=== PATIENT | male | born 1930 | race Caucasian/White ===

== ENCOUNTER 2018-06-12 12:52 | Inpatient (IN) | payer MEDICARE, OTHER ==
[2018-06-12 13:20] LABS: ADD MAN DIFF? NO
[2018-06-12 13:36] LABS: BASOPHIL # 0.1 10^3/ul (0.0-0.1); BASOPHILS % 0.6 % (0.0-2.0); EOSINOPHILS # 0.1 10^3/ul (0.0-0.5); EOSINOPHILS % 0.7 % (0.0-7.0); HEMOGLOBIN 13.7 g/dl (14.0-18.0); LYMPHOCYTES # 0.9 10^3/ul (0.8-2.9); LYMPHOCYTES % 11.1 % (15.0-51.0); MEAN CORPUSCULAR HEMOGLOBIN 31.7 pg (29.0-33.0); MEAN CORPUSCULAR HGB CONC 31.9 g/dl (32.0-37.0); MEAN CORPUSCULAR VOLUME 99.5 fl (82.0-101.0); MEAN PLATELET VOLUME 11.3 fl (7.4-10.4); MONOCYTES % 11.5 % (0.0-11.0); NEUTROPHIL # 6.3 10^3/ul (1.6-7.5); NEUTROPHILS % 75.6 % (39.0-77.0); PLATELET COUNT 195 10^3/UL (140-415); RED BLOOD COUNT 4.32 10^6/ul (4.70-6.10); RED CELL DISTRIBUTION WIDTH 15.9 % (11.5-14.5)
[2018-06-12 13:36] LABS: WHITE BLOOD COUNT 8.3 10^3/ul (4.8-10.8)
[2018-06-12 13:57] LABS: INR 1.49; PROTIME 18.3 Sec (11.9-14.9); PT RATIO 1.4
[2018-06-12 13:58] LABS: PARTIAL THROMBOPLASTIN TIME 29.6 Sec (25.0-35.0)
[2018-06-12 13:59] LABS: MAGNESIUM 2.3 mg/dl (1.7-2.5)
[2018-06-12 14:02] LABS: ALANINE AMINOTRANSFERASE 31 IU/L (13-69); ALBUMIN 3.1 g/dl (3.3-4.9); ALKALINE PHOSPHATASE 58 IU/L (42-121); ANION GAP 11 (8-16); ASPARTATE AMINO TRANSFERASE 23 IU/L (15-46); BILIRUBIN,INDIRECT 0.7 mg/dl (0-1.1); BILIRUBIN,TOTAL 0.7 mg/dl (0.2-1.3); BLOOD UREA NITROGEN 39 mg/dl (7-20); CALCIUM 8.6 mg/dl (8.4-10.2); CARBON DIOXIDE 27 mmol/L (21-31); CHLORIDE 110 mmol/L (97-110); CREATININE 1.25 mg/dl (0.61-1.24); GLUCOSE 87 mg/dl (70-220); POTASSIUM 4.4 mmol/L (3.5-5.1); SODIUM 144 mmol/L (135-144); TOTAL PROTEIN 5.9 g/dl (6.1-8.1)
[2018-06-12 14:12] LABS: B-TYPE NATRIURETIC PEPTIDE 5080 PG/ML (0-450); TROPONIN-I < 0.012 ng/ml (0.000-0.120)
[2018-06-12] MEDS: FUROSEMIDE 40 MG INJ IV (14:30)
[2018-06-12] MEDS: DILTIAZEM 25 MG INJ IV ×3 (14:31→15:55)
[2018-06-12] MEDS ORDERED: DOCUSATE SODIUM 100 MG CAP PO (15:00)
[2018-06-12] MEDS ORDERED: HYDROCODONE/APAP (5/325) TAB PO ×2 (15:00)
[2018-06-12] MEDS ORDERED: ACETAMINOPHEN 325 MG TAB PO (15:00)
[2018-06-12] MEDS ORDERED: morphine 2 MG INJ IV (15:00)
[2018-06-12] MEDS ORDERED: ACETAMINOPHEN 650 MG SUPP PR (15:00)
[2018-06-12] MEDS ORDERED: ONDANSETRON 4 MG INJ IV (15:00)
[2018-06-12] MEDS ORDERED: BISACODYL 10 MG SUPP PR (15:00)
[2018-06-12] MEDS ORDERED: NACL 0.9% 3 ML SYG IV (15:00)
[2018-06-12] MEDS ORDERED: WARFARIN 5 MG TAB PO (17:00)
[2018-06-12] MEDS: DIGOXIN 0.125 MG TAB PO (18:00)
[2018-06-12] MEDS: METOPROLOL 50 MG TAB PO ×2 (18:00→21:12)
[2018-06-12] MEDS: ATORVASTATIN 10 MG TAB PO (21:12)
[2018-06-12] MEDS: APIXABAN 5 MG TABLET PO (21:12)
[2018-06-13 05:52] LABS: ADD MAN DIFF? NO
[2018-06-13 05:59] LABS: BASOPHIL # 0.1 10^3/ul (0.0-0.1); BASOPHILS % 0.6 % (0.0-2.0); EOSINOPHILS # 0.1 10^3/ul (0.0-0.5); EOSINOPHILS % 1.5 % (0.0-7.0); HEMATOCRIT 44.2 % (42.0-52.0); HEMOGLOBIN 13.9 g/dl (14.0-18.0); LYMPHOCYTES % 12.1 % (15.0-51.0); MEAN CORPUSCULAR HEMOGLOBIN 30.7 pg (29.0-33.0); MEAN CORPUSCULAR HGB CONC 31.4 g/dl (32.0-37.0); MEAN CORPUSCULAR VOLUME 97.6 fl (82.0-101.0); MEAN PLATELET VOLUME 11.4 fl (7.4-10.4); MONOCYTE # 1.1 10^3/ul (0.3-0.9); MONOCYTES % 13.5 % (0.0-11.0); NEUTROPHIL # 5.7 10^3/ul (1.6-7.5); NEUTROPHILS % 71.7 % (39.0-77.0); PLATELET COUNT 181 10^3/UL (140-415); RED BLOOD COUNT 4.53 10^6/ul (4.70-6.10)
[2018-06-13] MEDS: PANTOPRAZOLE 40 MG INJ IV (06:00)
[2018-06-13 06:10] LABS: CREATINE KINASE 26 IU/L (23-200)
[2018-06-13 06:16] LABS: B-TYPE NATRIURETIC PEPTIDE 4850 PG/ML (0-450)
[2018-06-13 06:18] LABS: INR 1.61; PROTIME 19.5 Sec (11.9-14.9); PT RATIO 1.5
[2018-06-13 06:19] LABS: DIGOXIN 0.4 ng/ml (1.0-2.0)
[2018-06-13 06:22] LABS: CK INDEX 5.1; CK-MB 1.33 ng/ml (0.0-2.4); TROPONIN-I < 0.012 ng/ml (0.000-0.120)
[2018-06-13 06:27] LABS: ALANINE AMINOTRANSFERASE 35 IU/L (13-69); ALBUMIN 2.8 g/dl (3.3-4.9); ALKALINE PHOSPHATASE 49 IU/L (42-121); ANION GAP 11 (8-16); ASPARTATE AMINO TRANSFERASE 19 IU/L (15-46); BILIRUBIN,INDIRECT 0.8 mg/dl (0-1.1); BILIRUBIN,TOTAL 0.8 mg/dl (0.2-1.3); BLOOD UREA NITROGEN 39 mg/dl (7-20); CALCIUM 8.5 mg/dl (8.4-10.2); CARBON DIOXIDE 30 mmol/L (21-31); CHLORIDE 107 mmol/L (97-110); CHOL/HDL RATIO 2.2 RATIO; CHOLESTEROL 110 mg/dl (100-200); CREATININE 1.31 mg/dl (0.61-1.24); GLUCOSE 85 mg/dl (70-220); HDL CHOLESTEROL 49 mg/dl (31-75); LDL CHOLESTEROL,CALCULATED 49 mg/dl; MAGNESIUM 2.1 mg/dl (1.7-2.5); PHOSPHORUS 4.8 mg/dl (2.5-4.9); POTASSIUM 4.4 mmol/L (3.5-5.1); SODIUM 144 mmol/L (135-144); TOTAL PROTEIN 5.6 g/dl (6.1-8.1); TRIGLYCERIDES 60 mg/dl (0-149)
[2018-06-13 06:29] LABS: FREE THYROXINE INDEX (Calc) 2.53 ug/ml (0.65-3.89); T4 (THYROXINE) 5.5 ug/dl (5.5-11.0)
[2018-06-13 06:29] LABS: FREE T4 (FREE THYROXINE) 1.38 ng/dl (0.85-1.93)
[2018-06-13 07:13] LABS: HEMOGLOBIN A1C 5.8 % (0-5.9)
[2018-06-13] MEDS: METOPROLOL 50 MG TAB PO ×2 (08:57→12:11)
[2018-06-13] MEDS: APIXABAN 5 MG TABLET PO ×2 (08:57→21:22)
[2018-06-13] MEDS: LISINOPRIL 5 MG TAB PO (08:57)
[2018-06-13] MEDS ORDERED: LISINOPRIL 20 MG TAB PO (09:00)
[2018-06-13] MEDS ORDERED: AMLODIPINE 10 MG TAB PO (09:00)
[2018-06-13] MEDS ORDERED: AMIODARONE 200 MG TAB PO (09:00)
[2018-06-13] MEDS: DIGOXIN 0.125 MG TAB PO (12:10)
[2018-06-13 13:20] LABS: ADD UMIC YES; UR ASCORBIC ACID NEGATIVE (NEGATIVE); UR BACTERIA FEW /HPF (NONE SEEN); UR BILIRUBIN (Dip) NEGATIVE (NEGATIVE); UR BLOOD (Dip) NEGATIVE (NEGATIVE); UR CLARITY CLEAR (CLEAR); UR COLOR YELLOW (YELLOW); UR GLUCOSE (Dip) NEGATIVE (NEGATIVE); UR KETONES (Dip) NEGATIVE (NEGATIVE); UR LEUKOCYTE ESTERASE (Dip) NEGATIVE Leu/ul (NEGATIVE); UR NITRITE (Dip) NEGATIVE (NEGATIVE); UR RBC 2 /HPF (0-5); UR SPECIFIC GRAVITY (Dip) 1.014 (1.003-1.030); UR TOTAL PROTEIN (Dip) 1+ mg/dl (NEGATIVE); UR UROBILINOGEN (Dip) NEGATIVE (NEGATIVE); UR WBC 2 /HPF (0-5)
[2018-06-13 13:34] LABS: CREATININE,URINE RANDOM 96.81 mg/dl (20-370)
[2018-06-13 13:34] LABS: SODIUM,URINE RANDOM 16 mmol/L (30-90)
[2018-06-13] MEDS ORDERED: WARFARIN 2.5 MG TAB PO (17:00)
[2018-06-13] MEDS ORDERED: morphine LIQ (10 MG/5 ML) CUP PO (17:30)
[2018-06-13] MEDS: DIGOXIN 500 MCG INJ IV (18:13)
[2018-06-13] MEDS: METOPROLOL (XL) 100 MG TAB PO (21:24)
[2018-06-13] MEDS: ATORVASTATIN 10 MG TAB PO (21:24)
[2018-06-14] MEDS: PANTOPRAZOLE 40 MG INJ IV (05:18)
[2018-06-14] MEDS: DILTIAZEM 25 MG INJ IV ×2 (05:18→17:33)
[2018-06-14 05:54] LABS: ADD MAN DIFF? NO
[2018-06-14 06:00] LABS: WHITE BLOOD COUNT 7.9 10^3/ul (4.8-10.8)
[2018-06-14 06:00] LABS: BASOPHIL # 0.1 10^3/ul (0.0-0.1); BASOPHILS % 0.6 % (0.0-2.0); EOSINOPHILS # 0.2 10^3/ul (0.0-0.5); EOSINOPHILS % 1.9 % (0.0-7.0); HEMATOCRIT 46.2 % (42.0-52.0); HEMOGLOBIN 14.6 g/dl (14.0-18.0); LYMPHOCYTES % 13.1 % (15.0-51.0); MEAN CORPUSCULAR HEMOGLOBIN 31.5 pg (29.0-33.0); MEAN CORPUSCULAR HGB CONC 31.6 g/dl (32.0-37.0); MEAN CORPUSCULAR VOLUME 99.6 fl (82.0-101.0); MEAN PLATELET VOLUME 11.4 fl (7.4-10.4); MONOCYTE # 0.9 10^3/ul (0.3-0.9); MONOCYTES % 11.5 % (0.0-11.0); NEUTROPHIL # 5.7 10^3/ul (1.6-7.5); NEUTROPHILS % 72.4 % (39.0-77.0); PLATELET COUNT 184 10^3/UL (140-415); RED BLOOD COUNT 4.64 10^6/ul (4.70-6.10); RED CELL DISTRIBUTION WIDTH 15.9 % (11.5-14.5)
[2018-06-14 07:00] LABS: ANION GAP 11 (8-16); BLOOD UREA NITROGEN 42 mg/dl (7-20); CALCIUM 8.4 mg/dl (8.4-10.2); CARBON DIOXIDE 31 mmol/L (21-31); CHLORIDE 105 mmol/L (97-110); CREATININE 1.31 mg/dl (0.61-1.24); GLUCOSE 84 mg/dl (70-220); POTASSIUM 4.4 mmol/L (3.5-5.1); SODIUM 143 mmol/L (135-144)
[2018-06-14] MEDS: APIXABAN 5 MG TABLET PO ×2 (08:48→21:09)
[2018-06-14] MEDS: METOPROLOL (XL) 100 MG TAB PO ×2 (08:49→21:09)
[2018-06-14] MEDS: LISINOPRIL 5 MG TAB PO (08:50)
[2018-06-14] MEDS: FUROSEMIDE 20 MG INJ IV (10:58)
[2018-06-14] MEDS: DIGOXIN 500 MCG INJ IV (11:03)
[2018-06-14] MEDS: DIGOXIN 0.125 MG TAB PO (12:17)
[2018-06-14] MEDS: ATORVASTATIN 10 MG TAB PO (21:09)
[2018-06-15 06:16] LABS: ADD MAN DIFF? NO
[2018-06-15 06:23] LABS: BASOPHIL # 0.1 10^3/ul (0.0-0.1); BASOPHILS % 0.7 % (0.0-2.0); EOSINOPHILS # 0.2 10^3/ul (0.0-0.5); EOSINOPHILS % 2.1 % (0.0-7.0); HEMATOCRIT 43.9 % (42.0-52.0); HEMOGLOBIN 13.7 g/dl (14.0-18.0); LYMPHOCYTES # 0.9 10^3/ul (0.8-2.9); LYMPHOCYTES % 11.7 % (15.0-51.0); MEAN CORPUSCULAR HEMOGLOBIN 30.7 pg (29.0-33.0); MEAN CORPUSCULAR HGB CONC 31.2 g/dl (32.0-37.0); MEAN CORPUSCULAR VOLUME 98.4 fl (82.0-101.0); MEAN PLATELET VOLUME 11.5 fl (7.4-10.4); MONOCYTES % 12.7 % (0.0-11.0); NEUTROPHIL # 5.8 10^3/ul (1.6-7.5); NEUTROPHILS % 72.3 % (39.0-77.0); PLATELET COUNT 178 10^3/UL (140-415); RED BLOOD COUNT 4.46 10^6/ul (4.70-6.10); RED CELL DISTRIBUTION WIDTH 15.9 % (11.5-14.5)
[2018-06-15] MEDS: PANTOPRAZOLE 40 MG INJ IV (06:35)
[2018-06-15 06:49] LABS: ALANINE AMINOTRANSFERASE 27 IU/L (13-69); ALBUMIN 2.9 g/dl (3.3-4.9); ALBUMIN/GLOBULIN RATIO 1.11; ALKALINE PHOSPHATASE 50 IU/L (42-121); ANION GAP 9 (8-16); ASPARTATE AMINO TRANSFERASE 17 IU/L (15-46); B-TYPE NATRIURETIC PEPTIDE 8370 PG/ML (0-450); BILIRUBIN,INDIRECT 0.9 mg/dl (0-1.1); BILIRUBIN,TOTAL 0.9 mg/dl (0.2-1.3); BLOOD UREA NITROGEN 43 mg/dl (7-20); CALCIUM 8.3 mg/dl (8.4-10.2); CARBON DIOXIDE 31 mmol/L (21-31); CHLORIDE 107 mmol/L (97-110); CREATININE 1.29 mg/dl (0.61-1.24); GLUCOSE 80 mg/dl (70-220); POTASSIUM 4.3 mmol/L (3.5-5.1); SODIUM 143 mmol/L (135-144); TOTAL PROTEIN 5.5 g/dl (6.1-8.1)
[2018-06-15] MEDS ORDERED: BUMETANIDE 1 MG TAB PO (09:00)
[2018-06-15] MEDS: APIXABAN 5 MG TABLET PO ×2 (09:34→20:55)
[2018-06-15] MEDS: METOPROLOL (XL) 100 MG TAB PO ×2 (09:34→20:56)
[2018-06-15] MEDS: FUROSEMIDE 20 MG INJ IV ×2 (09:54→18:52)
[2018-06-15] MEDS: DILTIAZEM 30 MG TAB PO ×3 (13:00→18:52)
[2018-06-15] MEDS: DIGOXIN 0.125 MG TAB PO (13:04)
[2018-06-15 15:46] LABS: CREATININE, RANDOM URINE 98 mg/dL (20-320); MICROALBUMIN 13.3 mg/dL; MICROALBUMIN/CREATININE RATIO 136 (<30)
[2018-06-15] MEDS: ATORVASTATIN 10 MG TAB PO (20:55)
[2018-06-16] MEDS: DILTIAZEM 30 MG TAB PO ×5 (00:45→23:19)
[2018-06-16] MEDS: PANTOPRAZOLE 40 MG INJ IV (05:01)
[2018-06-16] MEDS: FUROSEMIDE 20 MG INJ IV ×2 (05:03→17:53)
[2018-06-16 05:44] LABS: ADD MAN DIFF? NO
[2018-06-16 05:49] LABS: BASOPHIL # 0.1 10^3/ul (0.0-0.1); BASOPHILS % 0.7 % (0.0-2.0); EOSINOPHILS # 0.1 10^3/ul (0.0-0.5); EOSINOPHILS % 1.9 % (0.0-7.0); HEMATOCRIT 45.1 % (42.0-52.0); HEMOGLOBIN 14.4 g/dl (14.0-18.0); LYMPHOCYTES # 0.9 10^3/ul (0.8-2.9); LYMPHOCYTES % 11.4 % (15.0-51.0); MEAN CORPUSCULAR HEMOGLOBIN 31.4 pg (29.0-33.0); MEAN CORPUSCULAR HGB CONC 31.9 g/dl (32.0-37.0); MEAN CORPUSCULAR VOLUME 98.5 fl (82.0-101.0); MEAN PLATELET VOLUME 11.4 fl (7.4-10.4); MONOCYTE # 0.9 10^3/ul (0.3-0.9); MONOCYTES % 12.4 % (0.0-11.0); NEUTROPHIL # 5.5 10^3/ul (1.6-7.5); NEUTROPHILS % 73.2 % (39.0-77.0); PLATELET COUNT 167 10^3/UL (140-415); RED BLOOD COUNT 4.58 10^6/ul (4.70-6.10); RED CELL DISTRIBUTION WIDTH 15.8 % (11.5-14.5)
[2018-06-16 05:49] LABS: WHITE BLOOD COUNT 7.5 10^3/ul (4.8-10.8)
[2018-06-16 06:31] LABS: ANION GAP 12 (8-16); BLOOD UREA NITROGEN 38 mg/dl (7-20); CARBON DIOXIDE 29 mmol/L (21-31); CHLORIDE 106 mmol/L (97-110); CREATININE 1.09 mg/dl (0.61-1.24); GLUCOSE 78 mg/dl (70-220); POTASSIUM 3.7 mmol/L (3.5-5.1); SODIUM 143 mmol/L (135-144)
[2018-06-16 06:36] LABS: MAGNESIUM 1.7 mg/dl (1.7-2.5)
[2018-06-16 06:43] LABS: B-TYPE NATRIURETIC PEPTIDE 8680 PG/ML (0-450)
[2018-06-16] MEDS: METOPROLOL (XL) 100 MG TAB PO ×2 (09:50→20:54)
[2018-06-16] MEDS: APIXABAN 5 MG TABLET PO ×2 (09:51→20:54)
[2018-06-16] MEDS: DIGOXIN 0.125 MG TAB PO (13:00)
[2018-06-16] MEDS: POTASSIUM CHLORIDE (SR) 20 MEQ TAB PO (18:02)
[2018-06-16] MEDS: ATORVASTATIN 10 MG TAB PO (20:54)
[2018-06-17] MEDS: DILTIAZEM 30 MG TAB PO (05:18)
[2018-06-17] MEDS: PANTOPRAZOLE 40 MG INJ IV (05:18)
[2018-06-17] MEDS: FUROSEMIDE 20 MG INJ IV ×2 (05:19→17:36)
[2018-06-17 06:11] LABS: ADD MAN DIFF? NO
[2018-06-17 06:21] LABS: HEMOGLOBIN 14.3 g/dl (14.0-18.0); RED BLOOD COUNT 4.59 10^6/ul (4.70-6.10)
[2018-06-17 06:21] LABS: WHITE BLOOD COUNT 7.3 10^3/ul (4.8-10.8)
[2018-06-17 06:22] LABS: BASOPHILS % 0.5 % (0.0-2.0); EOSINOPHILS # 0.2 10^3/ul (0.0-0.5); HEMATOCRIT 45.2 % (42.0-52.0); LYMPHOCYTES # 0.9 10^3/ul (0.8-2.9); LYMPHOCYTES % 11.9 % (15.0-51.0); MEAN CORPUSCULAR HEMOGLOBIN 31.2 pg (29.0-33.0); MEAN CORPUSCULAR HGB CONC 31.6 g/dl (32.0-37.0); MEAN CORPUSCULAR VOLUME 98.5 fl (82.0-101.0); MEAN PLATELET VOLUME 11.2 fl (7.4-10.4); MONOCYTE # 0.9 10^3/ul (0.3-0.9); MONOCYTES % 11.7 % (0.0-11.0); NEUTROPHIL # 5.3 10^3/ul (1.6-7.5); NEUTROPHILS % 72.9 % (39.0-77.0); PLATELET COUNT 165 10^3/UL (140-415); RED CELL DISTRIBUTION WIDTH 15.8 % (11.5-14.5)
[2018-06-17 06:33] LABS: ANION GAP 8 (8-16); BLOOD UREA NITROGEN 35 mg/dl (7-20); CALCIUM 7.9 mg/dl (8.4-10.2); CARBON DIOXIDE 33 mmol/L (21-31); CHLORIDE 107 mmol/L (97-110); CREATININE 1.22 mg/dl (0.61-1.24); GLUCOSE 82 mg/dl (70-220); POTASSIUM 3.8 mmol/L (3.5-5.1); SODIUM 144 mmol/L (135-144)
[2018-06-17 06:40] LABS: DIGOXIN 0.8 ng/ml (1.0-2.0)
[2018-06-17 08:37] LABS: MAGNESIUM 1.7 mg/dl (1.7-2.5)
[2018-06-17] MEDS: METOPROLOL (XL) 100 MG TAB PO ×2 (09:39→21:02)
[2018-06-17] MEDS: APIXABAN 5 MG TABLET PO ×2 (09:39→21:00)
[2018-06-17] MEDS: MAGNESIUM HYDROXIDE 30ML CUP PO (09:40)
[2018-06-17] MEDS: DIGOXIN 0.125 MG TAB PO (12:38)
[2018-06-17] MEDS: DILTIAZEM (CD) 180 MG CAP PO (21:00)
[2018-06-17] MEDS: ATORVASTATIN 10 MG TAB PO (21:00)
[2018-06-18 06:03] LABS: ADD MAN DIFF? NO
[2018-06-18 06:14] LABS: WHITE BLOOD COUNT 7.4 10^3/ul (4.8-10.8)
[2018-06-18 06:14] LABS: BASOPHILS % 0.4 % (0.0-2.0); EOSINOPHILS # 0.2 10^3/ul (0.0-0.5); EOSINOPHILS % 2.2 % (0.0-7.0); HEMATOCRIT 43.5 % (42.0-52.0); HEMOGLOBIN 13.8 g/dl (14.0-18.0); LYMPHOCYTES # 0.9 10^3/ul (0.8-2.9); LYMPHOCYTES % 11.5 % (15.0-51.0); MEAN CORPUSCULAR HEMOGLOBIN 31.2 pg (29.0-33.0); MEAN CORPUSCULAR HGB CONC 31.7 g/dl (32.0-37.0); MEAN CORPUSCULAR VOLUME 98.4 fl (82.0-101.0); MEAN PLATELET VOLUME 11.3 fl (7.4-10.4); MONOCYTES % 12.8 % (0.0-11.0); NEUTROPHIL # 5.4 10^3/ul (1.6-7.5); NEUTROPHILS % 72.7 % (39.0-77.0); PLATELET COUNT 158 10^3/UL (140-415); RED BLOOD COUNT 4.42 10^6/ul (4.70-6.10); RED CELL DISTRIBUTION WIDTH 15.8 % (11.5-14.5)
[2018-06-18] MEDS: PANTOPRAZOLE (EC) 40 MG TAB PO (06:18)
[2018-06-18] MEDS: FUROSEMIDE 20 MG INJ IV ×2 (06:19→17:37)
[2018-06-18 06:35] LABS: ANION GAP 9 (8-16); BLOOD UREA NITROGEN 34 mg/dl (7-20); CALCIUM 7.8 mg/dl (8.4-10.2); CARBON DIOXIDE 34 mmol/L (21-31); CHLORIDE 105 mmol/L (97-110); CREATININE 1.15 mg/dl (0.61-1.24); GLUCOSE 80 mg/dl (70-220); POTASSIUM 3.5 mmol/L (3.5-5.1); SODIUM 144 mmol/L (135-144)
[2018-06-18] MEDS: DILTIAZEM (CD) 180 MG CAP PO ×2 (08:27→20:14)
[2018-06-18] MEDS: APIXABAN 5 MG TABLET PO ×2 (08:28→20:14)
[2018-06-18] MEDS: METOPROLOL (XL) 100 MG TAB PO ×2 (08:28→20:14)
[2018-06-18] MEDS: POTASSIUM CHLORIDE (SR) 20 MEQ TAB PO (11:51)
[2018-06-18] MEDS: DIGOXIN 0.125 MG TAB PO (12:59)
[2018-06-18] MEDS: MAGNESIUM SULFATE 3 GM in DEXTROSE 5% 100 ML IVPB (12:59)
[2018-06-18] MEDS: ATORVASTATIN 10 MG TAB PO (20:14)
[2018-06-19] MEDS: PANTOPRAZOLE (EC) 40 MG TAB PO (06:06)
[2018-06-19] MEDS: FUROSEMIDE 20 MG INJ IV ×2 (06:06→17:36)
[2018-06-19] MEDS: METOPROLOL (XL) 100 MG TAB PO ×2 (08:14→20:25)
[2018-06-19] MEDS: APIXABAN 5 MG TABLET PO ×2 (08:14→20:25)
[2018-06-19] MEDS: DILTIAZEM (CD) 180 MG CAP PO ×2 (08:14→20:25)
[2018-06-19] MEDS: DIGOXIN 0.125 MG TAB PO (13:51)
[2018-06-19] MEDS: LISINOPRIL 10 MG TAB PO (17:36)
[2018-06-19] MEDS: MAGNESIUM HYDROXIDE 30ML CUP PO (17:41)
[2018-06-19] MEDS: ATORVASTATIN 10 MG TAB PO (20:25)
[2018-06-20] MEDS: FUROSEMIDE 20 MG INJ IV (05:36)
[2018-06-20] MEDS: PANTOPRAZOLE (EC) 40 MG TAB PO (05:36)
[2018-06-20 05:46] LABS: ADD MAN DIFF? NO
[2018-06-20 05:50] LABS: BASOPHILS % 0.5 % (0.0-2.0); EOSINOPHILS # 0.2 10^3/ul (0.0-0.5); EOSINOPHILS % 2.4 % (0.0-7.0); HEMATOCRIT 42.8 % (42.0-52.0); HEMOGLOBIN 13.7 g/dl (14.0-18.0); LYMPHOCYTES # 0.9 10^3/ul (0.8-2.9); LYMPHOCYTES % 11.1 % (15.0-51.0); MEAN CORPUSCULAR VOLUME 96.8 fl (82.0-101.0); NEUTROPHIL # 5.8 10^3/ul (1.6-7.5); NEUTROPHILS % 72.6 % (39.0-77.0); PLATELET COUNT 154 10^3/UL (140-415); RED BLOOD COUNT 4.42 10^6/ul (4.70-6.10); RED CELL DISTRIBUTION WIDTH 15.7 % (11.5-14.5)
[2018-06-20 06:10] LABS: MAGNESIUM 2.1 mg/dl (1.7-2.5)
[2018-06-20 06:10] LABS: PHOSPHORUS 2.8 mg/dl (2.5-4.9)
[2018-06-20 06:14] LABS: ANION GAP 6 (8-16); BLOOD UREA NITROGEN 29 mg/dl (7-20); CALCIUM 7.5 mg/dl (8.4-10.2); CARBON DIOXIDE 37 mmol/L (21-31); CHLORIDE 103 mmol/L (97-110); CREATININE 1.05 mg/dl (0.61-1.24); GLUCOSE 89 mg/dl (70-220); POTASSIUM 3.5 mmol/L (3.5-5.1); SODIUM 142 mmol/L (135-144)
[2018-06-20] MEDS: LISINOPRIL 10 MG TAB PO (09:26)
[2018-06-20] MEDS: APIXABAN 5 MG TABLET PO (09:27)
[2018-06-20] MEDS: METOPROLOL (XL) 100 MG TAB PO (09:27)
[2018-06-20] MEDS: DILTIAZEM (CD) 180 MG CAP PO (09:27)
[2018-06-20] MEDS: MAGNESIUM HYDROXIDE 30ML CUP PO (09:31)
[2018-06-20] MEDS: DIGOXIN 0.125 MG TAB PO (13:03)
[2018-06-21] MEDS ORDERED: FUROSEMIDE 40 MG TAB PO (09:00)
== END 2018-06-20 15:16 | DRG 308 ==
LOC: E/R 12:52 → 6WM 14:26
DX: I48.91 Unspecified atrial fibrillation (principal); I50.43 Acute on chronic combined systolic (congestive) and diastolic (congestive) heart failure; I13.0 Hypertensive heart and chronic kidney disease with heart failure and stage 1 through stage 4 chronic kidney disease, or unspecified chronic kidney disease; N17.9 Acute kidney failure, unspecified; I25.10 Atherosclerotic heart disease of native coronary artery without angina pectoris; I49.5 Sick sinus syndrome; E78.5 Hyperlipidemia, unspecified; N40.0 Benign prostatic hyperplasia without lower urinary tract symptoms; E83.9 Disorder of mineral metabolism, unspecified; R41.3 Other amnesia; D64.9 Anemia, unspecified; R09.02 Hypoxemia; I42.9 Cardiomyopathy, unspecified; I27.20 Pulmonary hypertension, unspecified; N18.3 Chronic kidney disease, stage 3 (moderate); Z96.642 Presence of left artificial hip joint; Z85.828 Personal history of other malignant neoplasm of skin; Z95.0 Presence of cardiac pacemaker; Z86.79 Personal history of other diseases of the circulatory system
CPT/HCPCS: 36415; 71045; 76775; 80048; 80053; 80061; 80162; 81001; 81003; 82043; 82550; 82553; 83036; 83735; 83880; 84100; 84155; 84300; 84436; 84439; 84443; 84479; 84484; 85025; 85610; 85730; 87081; 93005; 93306; 97116; 97161; 97530; 99291-25

== ENCOUNTER 2018-07-02 16:59 | Inpatient (IN) | payer MEDICARE, OTHER ==
[2018-07-02] MEDS: IPRATROPIUM (NEB) 0.5 MG/2.5 ML AMP INH (17:42)
[2018-07-02] MEDS: ALBUTEROL 0.5% (NEB) 2.5 MG/0.5 ML AMP INH (17:42)
[2018-07-02 18:00] LABS: ADD MAN DIFF? NO
[2018-07-02 18:03] LABS: ABNORMAL IP MESSAGE 1; BASOPHILS % 0.5 % (0.0-2.0); EOSINOPHILS # 0.1 10^3/ul (0.0-0.5); EOSINOPHILS % 1.5 % (0.0-7.0); HEMATOCRIT 46.5 % (42.0-52.0); HEMOGLOBIN 14.8 g/dl (14.0-18.0); LYMPHOCYTES # 0.5 10^3/ul (0.8-2.9); LYMPHOCYTES % 6.7 % (15.0-51.0); MEAN CORPUSCULAR HGB CONC 31.8 g/dl (32.0-37.0); MEAN CORPUSCULAR VOLUME 97.3 fl (82.0-101.0); MEAN PLATELET VOLUME 10.8 fl (7.4-10.4); MONOCYTE # 1.1 10^3/ul (0.3-0.9); NEUTROPHIL # 6.2 10^3/ul (1.6-7.5); NEUTROPHILS % 76.7 % (39.0-77.0); PLATELET COUNT 199 10^3/UL (140-415); POSITIVE DIFF @See below; RED BLOOD COUNT 4.78 10^6/ul (4.70-6.10); RED CELL DISTRIBUTION WIDTH 16.5 % (11.5-14.5)
[2018-07-02 18:21] LABS: INR 1.39; PROTIME 17.3 Sec (11.9-14.9); PT RATIO 1.4
[2018-07-02 18:22] LABS: PARTIAL THROMBOPLASTIN TIME 30.9 Sec (23.0-35.0)
[2018-07-02 18:28] LABS: ALANINE AMINOTRANSFERASE 26 IU/L (13-69); ALBUMIN 3.2 g/dl (3.3-4.9); ALKALINE PHOSPHATASE 64 IU/L (42-121); AMYLASE 45 U/L (11-123); ANION GAP 9 (8-16); ASPARTATE AMINO TRANSFERASE 23 IU/L (15-46); BILIRUBIN,INDIRECT 0.7 mg/dl (0-1.1); BILIRUBIN,TOTAL 0.7 mg/dl (0.2-1.3); BLOOD UREA NITROGEN 26 mg/dl (7-20); CARBON DIOXIDE 29 mmol/L (21-31); CHLORIDE 108 mmol/L (97-110); CREATININE 1.06 mg/dl (0.61-1.24); GLUCOSE 108 mg/dl (70-220); SODIUM 142 mmol/L (135-144); TOTAL PROTEIN 6.1 g/dl (6.1-8.1)
[2018-07-02 18:38] LABS: CALCIUM 8.3 mg/dl (8.4-10.2); LIPASE 161 U/L (23-300)
[2018-07-02 18:47] LABS: B-TYPE NATRIURETIC PEPTIDE 7400 PG/ML (0-450)
[2018-07-02 18:50] LABS: TROPONIN-I 0.044 ng/ml (0.000-0.120)
[2018-07-02] MEDS ORDERED: ALBUTEROL/IPRATROPIUM (NEB) 3 ML AMP HHN (19:00)
[2018-07-02] MEDS ORDERED: LABETALOL HCL 20MG INJ IV (19:00)
[2018-07-02] MEDS ORDERED: ONDANSETRON 4 MG INJ IV (19:30)
[2018-07-02] MEDS ORDERED: ACETAMINOPHEN 325 MG TAB PO (19:30)
[2018-07-02] MEDS: FUROSEMIDE 40 MG INJ IV (19:31)
[2018-07-02 20:12] LABS: ADD UMIC YES; UR ASCORBIC ACID NEGATIVE (NEGATIVE); UR BILIRUBIN (Dip) NEGATIVE (NEGATIVE); UR BLOOD (Dip) NEGATIVE (NEGATIVE); UR CLARITY CLEAR (CLEAR); UR COLOR YELLOW (YELLOW); UR GLUCOSE (Dip) NEGATIVE (NEGATIVE); UR KETONES (Dip) NEGATIVE (NEGATIVE); UR LEUKOCYTE ESTERASE (Dip) NEGATIVE Leu/ul (NEGATIVE); UR MUCUS FEW /HPF (NONE SEEN); UR NITRITE (Dip) NEGATIVE (NEGATIVE); UR RBC 4 /HPF (0-5); UR SPECIFIC GRAVITY (Dip) 1.018 (1.003-1.030); UR TOTAL PROTEIN (Dip) 2+ mg/dl (NEGATIVE); UR UROBILINOGEN (Dip) 2+ mg/dL (NEGATIVE); UR WBC 2 /HPF (0-5)
[2018-07-02] MEDS ORDERED: hydrALAzine 20 MG INJ IV (20:30)
[2018-07-02] MEDS: ALBUTEROL/IPRATROPIUM (NEB) 3 ML AMP HHN (20:54)
[2018-07-02] MEDS ORDERED: GLUCOSE GEL 15 GRAM TUBE PO ×2 (23:45)
[2018-07-02] MEDS ORDERED: GLUCOSE GEL 15 GRAM TUBE BUCCAL (23:45)
[2018-07-02] MEDS ORDERED: DEXTROSE 50% 50 ML SYRINGE IV ×2 (23:45)
[2018-07-02] MEDS ORDERED: GLUCAGON 1 MG INJ IM (23:45)
[2018-07-03] MEDS: ACCU-CHEK XX (02:00)
[2018-07-03] MEDS: DILTIAZEM 25 MG INJ IV (04:30)
[2018-07-03] MEDS ORDERED: METOPROLOL (XL) 100 MG TAB PO (06:00)
[2018-07-03] MEDS: METOPROLOL (XL) 100 MG TAB PO (06:35)
[2018-07-03] MEDS ORDERED: INSULIN ASPART [NOVOLOG] 3 ML PEN SC (07:55)
[2018-07-03] MEDS: APIXABAN 5 MG TABLET PO ×2 (08:20→20:57)
[2018-07-03] MEDS: DILTIAZEM (SR) 90 MG CAP PO ×2 (08:20→20:57)
[2018-07-03 08:25] LABS: ADD MAN DIFF? NO
[2018-07-03 08:35] LABS: WHITE BLOOD COUNT 8.3 10^3/ul (4.8-10.8)
[2018-07-03 08:35] LABS: ABNORMAL IP MESSAGE 1; BASOPHILS % 0.4 % (0.0-2.0); EOSINOPHILS # 0.1 10^3/ul (0.0-0.5); EOSINOPHILS % 0.8 % (0.0-7.0); HEMATOCRIT 47.3 % (42.0-52.0); LYMPHOCYTES # 0.6 10^3/ul (0.8-2.9); LYMPHOCYTES % 6.7 % (15.0-51.0); MEAN CORPUSCULAR HGB CONC 31.7 g/dl (32.0-37.0); MEAN CORPUSCULAR VOLUME 97.7 fl (82.0-101.0); MEAN PLATELET VOLUME 10.4 fl (7.4-10.4); MONOCYTE # 0.9 10^3/ul (0.3-0.9); MONOCYTES % 10.4 % (0.0-11.0); NEUTROPHIL # 6.8 10^3/ul (1.6-7.5); PLATELET COUNT 198 10^3/UL (140-415); POSITIVE DIFF @See below; RED BLOOD COUNT 4.84 10^6/ul (4.70-6.10); RED CELL DISTRIBUTION WIDTH 16.5 % (11.5-14.5)
[2018-07-03 08:54] LABS: ALANINE AMINOTRANSFERASE 35 IU/L (13-69); ALBUMIN 2.7 g/dl (3.3-4.9); ALBUMIN/GLOBULIN RATIO 0.87; ALKALINE PHOSPHATASE 61 IU/L (42-121); ANION GAP 11 (8-16); ASPARTATE AMINO TRANSFERASE 23 IU/L (15-46); BLOOD UREA NITROGEN 23 mg/dl (7-20); CALCIUM 8.2 mg/dl (8.4-10.2); CARBON DIOXIDE 30 mmol/L (21-31); CHLORIDE 106 mmol/L (97-110); CREATININE 1.06 mg/dl (0.61-1.24); GLUCOSE 114 mg/dl (70-220); POTASSIUM 3.9 mmol/L (3.5-5.1); SODIUM 143 mmol/L (135-144); TOTAL PROTEIN 5.8 g/dl (6.1-8.1)
[2018-07-03] MEDS: ALBUTEROL/IPRATROPIUM (NEB) 3 ML AMP HHN ×3 (09:18→20:00)
[2018-07-03 10:27] LABS: CREATINE KINASE 22 IU/L (23-200)
[2018-07-03 10:40] LABS: CK-MB 1.77 ng/ml (0.0-2.4)
[2018-07-03] MEDS: DIGOXIN 0.125 MG TAB PO (12:54)
[2018-07-03 14:35] LABS: CREATINE KINASE 29 IU/L (23-200)
[2018-07-03 14:46] LABS: CK INDEX 6.9; CK-MB 2.01 ng/ml (0.0-2.4)
[2018-07-03] MEDS: LORAZEPAM 2 MG INJ IV (22:55)
[2018-07-04] MEDS ORDERED: DILTIAZEM-D5W 125MG/125ML DRIP 125 ML IV ×2 (04:30→05:00)
[2018-07-04] MEDS: METHYLPREDNISOLONE 125 MG INJ IV ×2 (04:36→21:26)
[2018-07-04 05:25] LABS: ADD MAN DIFF? NO
[2018-07-04 05:33] LABS: WHITE BLOOD COUNT 8.4 10^3/ul (4.8-10.8)
[2018-07-04 05:33] LABS: BASOPHILS % 0.4 % (0.0-2.0); EOSINOPHILS # 0.2 10^3/ul (0.0-0.5); EOSINOPHILS % 1.8 % (0.0-7.0); HEMOGLOBIN 14.6 g/dl (14.0-18.0); LYMPHOCYTES # 0.9 10^3/ul (0.8-2.9); LYMPHOCYTES % 10.3 % (15.0-51.0); MEAN CORPUSCULAR HEMOGLOBIN 31.3 pg (29.0-33.0); MEAN CORPUSCULAR HGB CONC 32.4 g/dl (32.0-37.0); MEAN CORPUSCULAR VOLUME 96.4 fl (82.0-101.0); MEAN PLATELET VOLUME 10.6 fl (7.4-10.4); MONOCYTE # 1.1 10^3/ul (0.3-0.9); MONOCYTES % 13.5 % (0.0-11.0); NEUTROPHIL # 6.1 10^3/ul (1.6-7.5); NEUTROPHILS % 73.4 % (39.0-77.0); PLATELET COUNT 195 10^3/UL (140-415); RED BLOOD COUNT 4.67 10^6/ul (4.70-6.10); RED CELL DISTRIBUTION WIDTH 16.2 % (11.5-14.5)
[2018-07-04] MEDS: DILTIAZEM-D5W 125MG/125ML DRIP 125 ML IV ×2 (05:45→18:18)
[2018-07-04 06:15] LABS: CHOL/HDL RATIO 2.8 RATIO; HDL CHOLESTEROL 49 mg/dl (31-75); LDL CHOLESTEROL,CALCULATED 75 mg/dl; TRIGLYCERIDES 84 mg/dl (0-149)
[2018-07-04 06:15] LABS: CHOLESTEROL 141 mg/dl (100-200)
[2018-07-04 06:16] LABS: B-TYPE NATRIURETIC PEPTIDE 7720 PG/ML (0-450)
[2018-07-04 06:24] LABS: FREE T4 (FREE THYROXINE) 1.76 ng/dl (0.85-1.93)
[2018-07-04 06:35] LABS: CREATINE KINASE 27 IU/L (23-200)
[2018-07-04 06:40] LABS: DIGOXIN 0.9 ng/ml (1.0-2.0)
[2018-07-04 06:47] LABS: CK INDEX 7.9; CK-MB 2.12 ng/ml (0.0-2.4)
[2018-07-04 06:49] LABS: TROPONIN-I 0.056 ng/ml (0.000-0.120)
[2018-07-04 07:33] LABS: ANION GAP 12 (8-16); BLOOD UREA NITROGEN 32 mg/dl (7-20); CARBON DIOXIDE 27 mmol/L (21-31); CHLORIDE 116 mmol/L (97-110); CREATININE 1.25 mg/dl (0.61-1.24); GLUCOSE 109 mg/dl (70-220); MAGNESIUM 1.8 mg/dl (1.7-2.5); POTASSIUM 3.6 mmol/L (3.5-5.1); SODIUM 151 mmol/L (135-144)
[2018-07-04] MEDS: ALBUTEROL/IPRATROPIUM (NEB) 3 ML AMP HHN ×3 (07:43→19:37)
[2018-07-04] MEDS: METOPROLOL (XL) 50 MG TAB PO (08:22)
[2018-07-04] MEDS: DILTIAZEM (SR) 90 MG CAP PO (08:23)
[2018-07-04] MEDS: APIXABAN 5 MG TABLET PO ×2 (08:23→21:26)
[2018-07-04] MEDS: FUROSEMIDE 20 MG INJ IV ×2 (08:24→17:01)
[2018-07-04] MEDS ORDERED: FUROSEMIDE 20 MG INJ IV (09:00)
[2018-07-04] MEDS: DIGOXIN 0.125 MG TAB PO (12:31)
[2018-07-04] MEDS ORDERED: DILTIAZEM 90 MG TAB PO (18:30)
[2018-07-04] MEDS: DILTIAZEM 90 MG TAB PO (21:28)
[2018-07-05] MEDS: DILTIAZEM 90 MG TAB PO ×5 (03:11→23:47)
[2018-07-05] MEDS: DEXTROSE 5% 1,000 ML IV ×2 (05:20→11:10)
[2018-07-05] MEDS: METHYLPREDNISOLONE 125 MG INJ IV ×3 (05:45→21:48)
[2018-07-05] MEDS: FUROSEMIDE 20 MG INJ IV (05:45)
[2018-07-05 05:46] LABS: ABNORMAL IP MESSAGE 1; HEMATOCRIT 41.6 % (42.0-52.0); HEMOGLOBIN 13.5 g/dl (14.0-18.0); MEAN CORPUSCULAR HEMOGLOBIN 31.1 pg (29.0-33.0); MEAN CORPUSCULAR HGB CONC 32.5 g/dl (32.0-37.0); MEAN CORPUSCULAR VOLUME 95.9 fl (82.0-101.0); MEAN PLATELET VOLUME 11.2 fl (7.4-10.4); PLATELET COUNT 201 10^3/UL (140-415); POSITIVE DIFF @See below; RED BLOOD COUNT 4.34 10^6/ul (4.70-6.10); RED CELL DISTRIBUTION WIDTH 16.1 % (11.5-14.5)
[2018-07-05 05:46] LABS: WHITE BLOOD COUNT 11.5 10^3/ul (4.8-10.8)
[2018-07-05 06:12] LABS: ADD MAN DIFF? YES
[2018-07-05 06:17] LABS: DIGOXIN 0.9 ng/ml (1.0-2.0)
[2018-07-05 06:28] LABS: ANION GAP 12 (8-16); BLOOD UREA NITROGEN 33 mg/dl (7-20); CALCIUM 8.1 mg/dl (8.4-10.2); CARBON DIOXIDE 26 mmol/L (21-31); CHLORIDE 107 mmol/L (97-110); CREATININE 1.14 mg/dl (0.61-1.24); GLUCOSE 127 mg/dl (70-220); POTASSIUM 4.4 mmol/L (3.5-5.1); SODIUM 141 mmol/L (135-144)
[2018-07-05 06:29] LABS: MAGNESIUM 1.8 mg/dl (1.7-2.5); PHOSPHORUS 4.8 mg/dl (2.5-4.9)
[2018-07-05] MEDS: ALBUTEROL/IPRATROPIUM (NEB) 3 ML AMP HHN ×3 (07:45→20:02)
[2018-07-05] MEDS: DIGOXIN 500 MCG INJ IV (08:33)
[2018-07-05] MEDS: METOPROLOL (XL) 50 MG TAB PO (08:34)
[2018-07-05] MEDS: APIXABAN 5 MG TABLET PO ×2 (08:35→21:48)
[2018-07-05 08:36] LABS: ANISOCYTOSIS 1+ (0-0); BURR CELLS 2+ (0-0); GIANT THROMBO% (M) 1 % (0-0); LYMPHOCYTES #M 0.1 10^3/ul (0.8-2.9); LYMPHOCYTES % (M) 1 % (15-51); MONOCYTE #M 0.3 10^3/ul (0.3-0.9); MONOCYTES % (M) 3 % (0-11); PLATELET ESTIMATE NORMAL; POIKILOCYTOSIS 3+ (0-0); SEGMENTED NEUTROPHILS (M) % 96 % (39-77); SMUDGE%M 5 % (0-0)
[2018-07-05] MEDS: DILTIAZEM-D5W 125MG/125ML DRIP 125 ML IV (11:29)
[2018-07-05] MEDS: DIGOXIN 0.125 MG TAB PO (13:11)
[2018-07-05] MEDS: FUROSEMIDE 40 MG INJ IV (17:31)
[2018-07-06] MEDS: METHYLPREDNISOLONE 125 MG INJ IV (05:17)
[2018-07-06] MEDS: DILTIAZEM 90 MG TAB PO ×3 (05:18→17:42)
[2018-07-06] MEDS: FUROSEMIDE 40 MG INJ IV (05:18)
[2018-07-06 05:39] LABS: ADD MAN DIFF? NO
[2018-07-06 05:47] LABS: WHITE BLOOD COUNT 15.1 10^3/ul (4.8-10.8)
[2018-07-06 05:47] LABS: ABNORMAL IP MESSAGE 1; BASOPHILS % 0.1 % (0.0-2.0); HEMATOCRIT 41.5 % (42.0-52.0); HEMOGLOBIN 13.4 g/dl (14.0-18.0); LYMPHOCYTES # 0.3 10^3/ul (0.8-2.9); LYMPHOCYTES % 1.9 % (15.0-51.0); MEAN CORPUSCULAR HEMOGLOBIN 30.7 pg (29.0-33.0); MEAN CORPUSCULAR HGB CONC 32.3 g/dl (32.0-37.0); MEAN PLATELET VOLUME 10.6 fl (7.4-10.4); MONOCYTE # 0.6 10^3/ul (0.3-0.9); MONOCYTES % 3.8 % (0.0-11.0); NEUTROPHIL # 14.2 10^3/ul (1.6-7.5); NEUTROPHILS % 93.9 % (39.0-77.0); PLATELET COUNT 188 10^3/UL (140-415); POSITIVE DIFF @See below; RED BLOOD COUNT 4.37 10^6/ul (4.70-6.10); RED CELL DISTRIBUTION WIDTH 16.3 % (11.5-14.5)
[2018-07-06 06:05] LABS: DIGOXIN 1.1 ng/ml (1.0-2.0)
[2018-07-06 06:11] LABS: ALANINE AMINOTRANSFERASE 34 IU/L (13-69); ALBUMIN 2.8 g/dl (3.3-4.9); ALBUMIN/GLOBULIN RATIO 0.93; ALKALINE PHOSPHATASE 49 IU/L (42-121); ANION GAP 15 (8-16); ASPARTATE AMINO TRANSFERASE 23 IU/L (15-46); B-TYPE NATRIURETIC PEPTIDE 3520 PG/ML (0-450); BILIRUBIN,INDIRECT 0.4 mg/dl (0-1.1); BILIRUBIN,TOTAL 0.4 mg/dl (0.2-1.3); BLOOD UREA NITROGEN 44 mg/dl (7-20); CALCIUM 8.5 mg/dl (8.4-10.2); CARBON DIOXIDE 26 mmol/L (21-31); CHLORIDE 102 mmol/L (97-110); GLUCOSE 131 mg/dl (70-220); MAGNESIUM 1.9 mg/dl (1.7-2.5); POTASSIUM 3.8 mmol/L (3.5-5.1); SODIUM 139 mmol/L (135-144); TOTAL PROTEIN 5.8 g/dl (6.1-8.1)
[2018-07-06] MEDS: DILTIAZEM-D5W 125MG/125ML DRIP 125 ML IV (08:00)
[2018-07-06] MEDS: POTASSIUM CHLORIDE (SR) 20 MEQ TAB PO (08:34)
[2018-07-06] MEDS: APIXABAN 5 MG TABLET PO ×2 (08:34→21:31)
[2018-07-06] MEDS: METOPROLOL (XL) 50 MG TAB PO (08:34)
[2018-07-06] MEDS: ALBUTEROL/IPRATROPIUM (NEB) 3 ML AMP HHN ×3 (08:58→19:43)
[2018-07-06] MEDS: BUMETANIDE 3 MG in DEXTROSE 5% 18 ML IV (10:12)
[2018-07-06] MEDS ORDERED: GUAIFENESIN/DM 5ML CUP PO (11:00)
[2018-07-06] MEDS ORDERED: LEVOFLOXACIN 250MG/D5W (PMX) 50 ML IVPB (11:00)
[2018-07-06] MEDS: CEFEPIME 1GM/50 ML (PMX) 50 ML IVPB ×2 (11:44→21:32)
[2018-07-06] MEDS: LEVOFLOXACIN 250MG/D5W (PMX) 50 ML IVPB (12:07)
[2018-07-06] MEDS: METHYLPREDNISOLONE 40 MG INJ IV ×2 (13:20→21:31)
[2018-07-06] MEDS: DIGOXIN 0.125 MG TAB PO (13:20)
[2018-07-07] MEDS: DILTIAZEM 90 MG TAB PO ×4 (00:57→19:00)
[2018-07-07 05:43] LABS: ADD MAN DIFF? NO
[2018-07-07 05:47] LABS: ABNORMAL IP MESSAGE 1; BASOPHILS % 0.1 % (0.0-2.0); HEMATOCRIT 40.6 % (42.0-52.0); HEMOGLOBIN 13.3 g/dl (14.0-18.0); LYMPHOCYTES # 0.2 10^3/ul (0.8-2.9); LYMPHOCYTES % 1.4 % (15.0-51.0); MEAN CORPUSCULAR HGB CONC 32.8 g/dl (32.0-37.0); MEAN CORPUSCULAR VOLUME 94.6 fl (82.0-101.0); MEAN PLATELET VOLUME 10.7 fl (7.4-10.4); MONOCYTE # 0.7 10^3/ul (0.3-0.9); MONOCYTES % 4.5 % (0.0-11.0); NEUTROPHIL # 13.8 10^3/ul (1.6-7.5); NEUTROPHILS % 93.3 % (39.0-77.0); PLATELET COUNT 187 10^3/UL (140-415); POSITIVE DIFF @See below; RED BLOOD COUNT 4.29 10^6/ul (4.70-6.10); RED CELL DISTRIBUTION WIDTH 16.2 % (11.5-14.5)
[2018-07-07 05:47] LABS: WHITE BLOOD COUNT 14.8 10^3/ul (4.8-10.8)
[2018-07-07] MEDS: METHYLPREDNISOLONE 40 MG INJ IV ×3 (05:56→21:19)
[2018-07-07 06:11] LABS: DIGOXIN 1.2 ng/ml (1.0-2.0)
[2018-07-07 06:17] LABS: ALANINE AMINOTRANSFERASE 42 IU/L (13-69); ALBUMIN 2.6 g/dl (3.3-4.9); ALBUMIN/GLOBULIN RATIO 0.92; ALKALINE PHOSPHATASE 53 IU/L (42-121); ANION GAP 14 (8-16); ASPARTATE AMINO TRANSFERASE 28 IU/L (15-46); BILIRUBIN,INDIRECT 0.4 mg/dl (0-1.1); BILIRUBIN,TOTAL 0.4 mg/dl (0.2-1.3); BLOOD UREA NITROGEN 49 mg/dl (7-20); CALCIUM 8.4 mg/dl (8.4-10.2); CARBON DIOXIDE 25 mmol/L (21-31); CHLORIDE 104 mmol/L (97-110); CREATININE 1.25 mg/dl (0.61-1.24); GLUCOSE 135 mg/dl (70-220); MAGNESIUM 1.8 mg/dl (1.7-2.5); POTASSIUM 4.2 mmol/L (3.5-5.1); SODIUM 139 mmol/L (135-144); TOTAL PROTEIN 5.4 g/dl (6.1-8.1)
[2018-07-07 06:20] LABS: PHOSPHORUS 4.2 mg/dl (2.5-4.9)
[2018-07-07 06:22] LABS: B-TYPE NATRIURETIC PEPTIDE 2920 PG/ML (0-450)
[2018-07-07] MEDS: ALBUTEROL/IPRATROPIUM (NEB) 3 ML AMP HHN ×3 (08:36→19:33)
[2018-07-07] MEDS ORDERED: BISACODYL (EC) 5 MG TAB PO (09:00)
[2018-07-07] MEDS: APIXABAN 5 MG TABLET PO ×2 (09:24→21:23)
[2018-07-07] MEDS: METOPROLOL (XL) 50 MG TAB PO (09:25)
[2018-07-07] MEDS: MAGNESIUM HYDROXIDE 30ML CUP PO (09:25)
[2018-07-07] MEDS: DILTIAZEM-D5W 125MG/125ML DRIP 125 ML IV (09:28)
[2018-07-07] MEDS: CEFEPIME 1GM/50 ML (PMX) 50 ML IVPB ×2 (09:28→21:18)
[2018-07-07] MEDS: POLYETHYLENE GLYCOL 17 GM PACKET PO ×2 (09:30→21:00)
[2018-07-07] MEDS: DIGOXIN 0.125 MG TAB PO (13:22)
[2018-07-07] MEDS: LEVOFLOXACIN 250MG/D5W (PMX) 50 ML IVPB (14:01)
[2018-07-08] MEDS: DILTIAZEM 90 MG TAB PO ×4 (00:17→17:24)
[2018-07-08 06:11] LABS: ADD MAN DIFF? NO
[2018-07-08 06:12] LABS: ABNORMAL IP MESSAGE 1; BASOPHILS % 0.1 % (0.0-2.0); HEMATOCRIT 41.6 % (42.0-52.0); HEMOGLOBIN 13.5 g/dl (14.0-18.0); LYMPHOCYTES # 0.2 10^3/ul (0.8-2.9); LYMPHOCYTES % 1.3 % (15.0-51.0); MEAN CORPUSCULAR HEMOGLOBIN 31.2 pg (29.0-33.0); MEAN CORPUSCULAR HGB CONC 32.5 g/dl (32.0-37.0); MEAN CORPUSCULAR VOLUME 96.1 fl (82.0-101.0); MEAN PLATELET VOLUME 10.8 fl (7.4-10.4); MONOCYTE # 0.5 10^3/ul (0.3-0.9); MONOCYTES % 3.4 % (0.0-11.0); NEUTROPHIL # 12.8 10^3/ul (1.6-7.5); NEUTROPHILS % 93.6 % (39.0-77.0); PLATELET COUNT 184 10^3/UL (140-415); POSITIVE DIFF @See below; RED BLOOD COUNT 4.33 10^6/ul (4.70-6.10); RED CELL DISTRIBUTION WIDTH 16.3 % (11.5-14.5)
[2018-07-08 06:12] LABS: WHITE BLOOD COUNT 13.7 10^3/ul (4.8-10.8)
[2018-07-08] MEDS: METHYLPREDNISOLONE 40 MG INJ IV ×2 (06:20→21:24)
[2018-07-08 06:37] LABS: PHOSPHORUS 3.6 mg/dl (2.5-4.9)
[2018-07-08 06:56] LABS: ANION GAP 11 (8-16); BLOOD UREA NITROGEN 47 mg/dl (7-20); CALCIUM 8.4 mg/dl (8.4-10.2); CARBON DIOXIDE 28 mmol/L (21-31); CHLORIDE 106 mmol/L (97-110); CREATININE 1.39 mg/dl (0.61-1.24); GLUCOSE 126 mg/dl (70-220); POTASSIUM 4.7 mmol/L (3.5-5.1); SODIUM 140 mmol/L (135-144)
[2018-07-08] MEDS: POLYETHYLENE GLYCOL 17 GM PACKET PO ×2 (07:59→21:00)
[2018-07-08] MEDS: APIXABAN 5 MG TABLET PO ×2 (07:59→21:23)
[2018-07-08] MEDS: METOPROLOL (XL) 50 MG TAB PO (08:00)
[2018-07-08] MEDS: CEFEPIME 1GM/50 ML (PMX) 50 ML IVPB ×2 (08:00→21:23)
[2018-07-08] MEDS: ALBUTEROL/IPRATROPIUM (NEB) 3 ML AMP HHN ×3 (08:21→19:36)
[2018-07-08] MEDS: DIGOXIN 0.125 MG TAB PO (11:57)
[2018-07-08] MEDS: FUROSEMIDE 20 MG INJ IV (12:34)
[2018-07-08] MEDS: LEVOFLOXACIN 250MG/D5W (PMX) 50 ML IVPB (12:34)
[2018-07-09] MEDS: DILTIAZEM 90 MG TAB PO ×4 (00:05→17:08)
[2018-07-09 05:39] LABS: ADD MAN DIFF? NO
[2018-07-09 05:41] LABS: WHITE BLOOD COUNT 13.9 10^3/ul (4.8-10.8)
[2018-07-09 05:41] LABS: ABNORMAL IP MESSAGE 1; BASOPHILS % 0.1 % (0.0-2.0); HEMATOCRIT 43.2 % (42.0-52.0); HEMOGLOBIN 13.9 g/dl (14.0-18.0); LYMPHOCYTES # 0.2 10^3/ul (0.8-2.9); LYMPHOCYTES % 1.1 % (15.0-51.0); MEAN CORPUSCULAR HEMOGLOBIN 31.1 pg (29.0-33.0); MEAN CORPUSCULAR HGB CONC 32.2 g/dl (32.0-37.0); MEAN CORPUSCULAR VOLUME 96.6 fl (82.0-101.0); MEAN PLATELET VOLUME 10.8 fl (7.4-10.4); MONOCYTE # 0.5 10^3/ul (0.3-0.9); MONOCYTES % 3.4 % (0.0-11.0); NEUTROPHIL # 13.1 10^3/ul (1.6-7.5); NEUTROPHILS % 94.2 % (39.0-77.0); PLATELET COUNT 182 10^3/UL (140-415); POSITIVE DIFF @See below; RED BLOOD COUNT 4.47 10^6/ul (4.70-6.10); RED CELL DISTRIBUTION WIDTH 16.5 % (11.5-14.5)
[2018-07-09 06:02] LABS: MAGNESIUM 2.1 mg/dl (1.7-2.5)
[2018-07-09 06:02] LABS: PHOSPHORUS 3.7 mg/dl (2.5-4.9)
[2018-07-09 06:06] LABS: ANION GAP 10 (8-16); BLOOD UREA NITROGEN 46 mg/dl (7-20); CALCIUM 8.4 mg/dl (8.4-10.2); CARBON DIOXIDE 31 mmol/L (21-31); CHLORIDE 105 mmol/L (97-110); CREATININE 1.21 mg/dl (0.61-1.24); GLUCOSE 132 mg/dl (70-220); POTASSIUM 5.1 mmol/L (3.5-5.1); SODIUM 141 mmol/L (135-144)
[2018-07-09] MEDS: POLYETHYLENE GLYCOL 17 GM PACKET PO ×2 (08:12→22:22)
[2018-07-09] MEDS: APIXABAN 5 MG TABLET PO ×2 (08:12→22:22)
[2018-07-09] MEDS: CEFEPIME 1GM/50 ML (PMX) 50 ML IVPB ×2 (08:13→22:38)
[2018-07-09] MEDS: METHYLPREDNISOLONE 40 MG INJ IV (08:13)
[2018-07-09] MEDS: METOPROLOL (XL) 100 MG TAB PO (08:13)
[2018-07-09] MEDS: FUROSEMIDE 40 MG INJ IV ×3 (09:41→17:08)
[2018-07-09] MEDS: ALBUTEROL/IPRATROPIUM (NEB) 3 ML AMP HHN ×3 (10:13→20:14)
[2018-07-09] MEDS: LEVOFLOXACIN 250MG/D5W (PMX) 50 ML IVPB (12:33)
[2018-07-09] MEDS: DIGOXIN 0.125 MG TAB PO (12:33)
[2018-07-09 13:35] LABS: AADO2 Arterial 37.8 mmHg (7.0-24.0); Allen Test ACCEPTAB; Arterial Base Excess 0.6 mmol/L (-3.0-3); Arterial COHb 0.7 % (0.0-3.0); Arterial Fraction of Oxyhgb 92.3 % (93.0-99.0); Arterial HCO3 24.5 mmol/L (22.0-26.0); Arterial MetHb 0.1 % (0.0-1.5); Arterial Total Hemglobin 15.1 g/dl (12.0-18.0); MODE ROOM AIR; Site Right Radial
[2018-07-10] MEDS: DILTIAZEM 90 MG TAB PO ×5 (00:26→23:58)
[2018-07-10 05:42] LABS: ADD MAN DIFF? NO
[2018-07-10 05:56] LABS: ABNORMAL IP MESSAGE 1; BASOPHILS % 0.1 % (0.0-2.0); HEMATOCRIT 43.7 % (42.0-52.0); HEMOGLOBIN 14.2 g/dl (14.0-18.0); LYMPHOCYTES # 0.2 10^3/ul (0.8-2.9); LYMPHOCYTES % 1.6 % (15.0-51.0); MEAN CORPUSCULAR HGB CONC 32.5 g/dl (32.0-37.0); MEAN CORPUSCULAR VOLUME 95.4 fl (82.0-101.0); MEAN PLATELET VOLUME 11.1 fl (7.4-10.4); MONOCYTE # 0.8 10^3/ul (0.3-0.9); MONOCYTES % 5.3 % (0.0-11.0); NEUTROPHIL # 13.7 10^3/ul (1.6-7.5); NEUTROPHILS % 92.5 % (39.0-77.0); PLATELET COUNT 187 10^3/UL (140-415); POSITIVE DIFF @See below; RED BLOOD COUNT 4.58 10^6/ul (4.70-6.10); RED CELL DISTRIBUTION WIDTH 16.6 % (11.5-14.5)
[2018-07-10 05:56] LABS: WHITE BLOOD COUNT 14.8 10^3/ul (4.8-10.8)
[2018-07-10] MEDS: FUROSEMIDE 40 MG INJ IV ×2 (06:14→19:04)
[2018-07-10 06:28] LABS: B-TYPE NATRIURETIC PEPTIDE 5430 PG/ML (0-450)
[2018-07-10 06:29] LABS: ALANINE AMINOTRANSFERASE 77 IU/L (13-69); ALBUMIN 2.8 g/dl (3.3-4.9); ALKALINE PHOSPHATASE 45 IU/L (42-121); ANION GAP 12 (8-16); ASPARTATE AMINO TRANSFERASE 34 IU/L (15-46); BILIRUBIN,INDIRECT 0.8 mg/dl (0-1.1); BILIRUBIN,TOTAL 0.8 mg/dl (0.2-1.3); BLOOD UREA NITROGEN 52 mg/dl (7-20); CALCIUM 8.2 mg/dl (8.4-10.2); CARBON DIOXIDE 31 mmol/L (21-31); CHLORIDE 102 mmol/L (97-110); CREATININE 1.16 mg/dl (0.61-1.24); GLUCOSE 117 mg/dl (70-220); MAGNESIUM 2.1 mg/dl (1.7-2.5); POTASSIUM 4.1 mmol/L (3.5-5.1); SODIUM 141 mmol/L (135-144); TOTAL PROTEIN 5.6 g/dl (6.1-8.1)
[2018-07-10] MEDS: METOPROLOL (XL) 100 MG TAB PO (08:44)
[2018-07-10] MEDS: APIXABAN 5 MG TABLET PO ×2 (08:45→20:59)
[2018-07-10] MEDS: POLYETHYLENE GLYCOL 17 GM PACKET PO ×2 (08:45→21:00)
[2018-07-10] MEDS: CEFEPIME 1GM/50 ML (PMX) 50 ML IVPB (08:46)
[2018-07-10] MEDS: ALBUTEROL/IPRATROPIUM (NEB) 3 ML AMP HHN ×3 (08:49→21:53)
[2018-07-10] MEDS: METHYLPREDNISOLONE 40 MG INJ IV (09:07)
[2018-07-10] MEDS: DIGOXIN 0.125 MG TAB PO (12:18)
[2018-07-10] MEDS: METOPROLOL (XL) 50 MG TAB PO (20:59)
[2018-07-10] MEDS: DILTIAZEM 25 MG INJ IV (23:16)
[2018-07-11] MEDS: DILTIAZEM 90 MG TAB PO ×3 (05:49→17:27)
[2018-07-11] MEDS: FUROSEMIDE 40 MG INJ IV ×2 (05:50→17:27)
[2018-07-11 06:11] LABS: ALANINE AMINOTRANSFERASE 99 IU/L (13-69); ALBUMIN 2.8 g/dl (3.3-4.9); ALKALINE PHOSPHATASE 45 IU/L (42-121); ANION GAP 12 (8-16); ASPARTATE AMINO TRANSFERASE 44 IU/L (15-46); B-TYPE NATRIURETIC PEPTIDE 5300 PG/ML (0-450); BLOOD UREA NITROGEN 58 mg/dl (7-20); CALCIUM 8.1 mg/dl (8.4-10.2); CARBON DIOXIDE 32 mmol/L (21-31); CHLORIDE 102 mmol/L (97-110); CREATININE 1.14 mg/dl (0.61-1.24); GLUCOSE 113 mg/dl (70-220); MAGNESIUM 2.1 mg/dl (1.7-2.5); SODIUM 142 mmol/L (135-144); TOTAL PROTEIN 5.6 g/dl (6.1-8.1)
[2018-07-11] MEDS: APIXABAN 5 MG TABLET PO (08:10)
[2018-07-11] MEDS: POLYETHYLENE GLYCOL 17 GM PACKET PO (08:10)
[2018-07-11] MEDS: METOPROLOL (XL) 100 MG TAB PO (08:11)
[2018-07-11] MEDS: ALBUTEROL/IPRATROPIUM (NEB) 3 ML AMP HHN ×2 (08:30→14:34)
[2018-07-11] MEDS: DIGOXIN 0.125 MG TAB PO (12:14)
[2018-07-11] MEDS ORDERED: METOPROLOL (XL) 100 MG TAB PO (21:00)
== END 2018-07-11 18:02 | DRG 291 ==
LOC: TEL 07-03 02:10 → E/R 16:59 → 6WM 07-03 02:11
PROC: 4A033R1 Measurement of Arterial Saturation, Peripheral, Percutaneous Approach (ICD-10-PCS; principal; 2018-07-09)
DX: I13.0 Hypertensive heart and chronic kidney disease with heart failure and stage 1 through stage 4 chronic kidney disease, or unspecified chronic kidney disease (principal); I50.43 Acute on chronic combined systolic (congestive) and diastolic (congestive) heart failure; J96.01 Acute respiratory failure with hypoxia; J18.9 Pneumonia, unspecified organism; N17.9 Acute kidney failure, unspecified; G93.49 Other encephalopathy; J45.901 Unspecified asthma with (acute) exacerbation; I42.9 Cardiomyopathy, unspecified; I27.20 Pulmonary hypertension, unspecified; N18.9 Chronic kidney disease, unspecified; E78.5 Hyperlipidemia, unspecified; N40.0 Benign prostatic hyperplasia without lower urinary tract symptoms; I25.10 Atherosclerotic heart disease of native coronary artery without angina pectoris; D64.9 Anemia, unspecified; F29 Unspecified psychosis not due to a substance or known physiological condition; I48.0 Paroxysmal atrial fibrillation; I08.1 Rheumatic disorders of both mitral and tricuspid valves; R41.3 Other amnesia; D69.6 Thrombocytopenia, unspecified; I48.2 Chronic atrial fibrillation; Z95.0 Presence of cardiac pacemaker; J20.9 Acute bronchitis, unspecified; D72.829 Elevated white blood cell count, unspecified; T38.0X5A Adverse effect of glucocorticoids and synthetic analogues, initial encounter; Z79.01 Long term (current) use of anticoagulants; Y92.230 Patient room in hospital as the place of occurrence of the external cause
CPT/HCPCS: 36415; 36600; 71045; 80048; 80053; 80061; 80162; 81001; 82150; 82550; 82553; 82803; 82962; 83690; 83735; 83880; 84100; 84439; 84443; 84484; 85025; 85610; 85730; 86850; 86900; 86901; 87040; 87086; 93005; 94640; 94644; 94664; 97110; 97161; 99285-25; G0378